=== PATIENT | female | born 1945 | race Caucasian/White ===

== ENCOUNTER 2018-10-23 08:20 | Inpatient (IN) ==
[2018-10-23] MEDS ORDERED: ceFAZolin SODIUM 1 GM VIAL IV PRN (09:00)
[2018-10-23] MEDS ORDERED: TRANEXAMIC ACID 1,000 MG in NORMAL SALINE 100 ML IV PRN (09:00)
[2018-10-23] MEDS ORDERED: MORPHINE SULFATE 15 MG TABLET.SA PO PRN (09:00)
--- NOTE | 2018-10-23 10:16 | ANES ---
Anesthesia Pre Procedure Eval Vitals/Labs: Last Vital Signs Temp 36.5 C 10/23/18 08:52 Pulse 75 10/23/18 08:52 Resp 16 10/23/18 08:52 BP 148/57 10/23/18 08:52 Pulse Ox 95 10/23/18 08:52 HOME MEDICATIONS Albuterol Sulfate [Albuterol Sulfate Hfa] 18 gm INHALATION PRN PRN 10/23/18 [Last Taken Unknown] Budesonide/Formoterol Fumarate [Symbicort 160-4.5 Mcg Inhaler] 2 inhaler INHALATION PRN PRN 10/23/18 [Last Taken Unknown] Fexofenadine/Pseudoephedrine [Estrella-D 12 Hour Tablet] 1 ea PO PRN PRN 10/23/18 [Last Taken 10/23/18 06:15] Levothyroxine Sodium [Synthroid] 75 mcg PO DAILY 10/23/18 [Last Taken 10/23/18 06:15] Lisinopril/Hydrochlorothiazide [Lisinopril-Hctz 10-12.5 mg Tab] 1 ea PO DAILY 10/23/18 [Last Taken 10/23/18 06:15] Allergies/Adverse Reactions: Allergies Allergy/AdvReac Type Severity Reaction Status Date / Time peanut Allergy Severe Shortness Verified 10/23/18 09:01 of Breath montelukast [From Singulair] Allergy hives Verified 10/23/18 09:01 alendronate sodium AdvReac Unknown Other Verified 10/23/18 09:01 [From Fosamax] clopidogrel [From Plavix] AdvReac epistaxis Verified 09/05/18 09:01 grass pollen AdvReac trouble Verified 09/05/18 09:01 breathing house dust mite AdvReac touble Verified 09/05/18 09:01 breathing mold AdvReac trouble Verified 09/05/18 09:01 breathing pollen extracts AdvReac trouble Verified 09/05/18 09:01 breathing tetnus Allergy Unknown Uncoded 10/23/18 09:01 - Planned Procedure Planned Procedure: R total reverse shoulder Medication List Reviewed:: Yes Allergies Verified: Yes Medical History (Updated 10/03/18 @ 16:21 by Eliecer Randhawa MD) Osteoarthritis of shoulder (Chronic) Precancerous changes of the cervix Varicose veins of both lower extremities Arthritis Onset Date: ~11/10/12 ankle and foot Asthma Crohns disease Environmental allergies Fibromyalgia Irritable bowel Osteopenia Osteoporosis Rheumatoid arthritis Thyroid disease History of sinus problem Stroke Transient ischemic attack (TIA) Surgical History (Updated 09/21/18 @ 14:30 by Eliecer Randhawa MD) History of breast surgery Onset Date: ~1991 reconstructive breast surgery History of colonoscopy Onset Date: ~05/2004 Bagan- colitis History of hysterectomy Onset Date: ~1980 still has 1 ovary History of mastectomy Onset Date: ~1988 right breast Retinal detachment Onset Date: ~2000 Family History (Updated 08/03/18 @ 08:02 by Lety Webster LPN) Father Asthma Sister Cancer colon Son Jackman sarcoma Sister History of breast cancer Mother Myocardial infarction Schizophrenia - Family Anesthesia History Family History:: no untoward family reactions to anesthesia - Airway/Neck/Teeth Denture Type: Full upper Neck Exam: full range of motion Mallampatti Score: 1 Thyromental (T-M) distance: > 6 cm - Respiratory Respiratory History: COPD Respiratory Physical: lungs clear Sleep Apnea currently treated: No Sleep Apnea by current assessment: No - Cardiovascular Cardiac History: TIA Heart Sounds: S1 & S2, Regular, Murmur - Anesthesia Assessment and Plan ASA Class: PS, III Anesthesia Type Plan: General LMA - interscalene nerve block for postop analgesia Planned difficult intubation/equipment available: No
[2018-10-23] MEDS: RINGER'S SOLUTION,LACTATED 1,000 ML IV PRN ×2 (10:34→11:30)
[2018-10-23] MEDS ORDERED: ACETAMINOPHEN 500 MG TABLET PO PRN (13:18)
[2018-10-23] MEDS ORDERED: MORPHINE SULFATE 2 MG/ML DISP.SYRIN IV PRN (13:18)
[2018-10-23] MEDS ORDERED: diphenhydrAMINE HCL 50 MG/ML VIAL IV PRN (13:18)
[2018-10-23] MEDS ORDERED: ZOLPIDEM TARTRATE 5 MG TABLET PO PRN (13:18)
[2018-10-23] MEDS ORDERED: MAG HYDROX/ALUMINUM HYD/SIMETH 30 ML UDC PO PRN (13:18)
[2018-10-23] MEDS ORDERED: ONDANSETRON HCL/PF 2 MG/ML VIAL IV PRN (13:18)
[2018-10-23] MEDS ORDERED: MAGNESIUM HYDROXIDE 30 ML UDC PO PRN (13:18)
[2018-10-23] MEDS ORDERED: ALBUTEROL SULFATE 200 PUFF INHALER IH PRN (13:20)
[2018-10-23] MEDS ORDERED: FEXOFENADINE PO PRN (13:20)
[2018-10-23] MEDS ORDERED: [UNRECOGNIZED DRUG - OTHER] PO PRN (13:20)
[2018-10-23] MEDS ORDERED: PSEUDOEPHEDRINE PO PRN (13:20)
--- NOTE | 2018-10-23 13:27 | OR ---
Operative Report - Dictated Report Narrative: DATE OF PROCEDURE: 10/23/2018 PHYSICIAN: Eliecer Randhawa MD LABORER SAWMILL: Roscoe Spencer PA-C (provided and essential set of skilled, educated hands that assisted with transfer, positioning, prepping, draping, manipulation, retraction, placement of implants, irrigation, closure wounds, and application of dressings all which cannot be performed by the available surgical crew) PREOPERATIVE DIAGNOSIS: Right rotator cuff deficient shoulder arthrosis. POSTOPERATIVE DIAGNOSIS: Right rotator cuff deficient shoulder arthrosis. OPERATIONS AND PROCEDURES: Right reverse total shoulder arthroplasty. ANESTHESIA: General plus regional. COMPLICATIONS: None. DRAINS: None. SPECIMENS: Bone. ESTIMATED BLOOD LOSS: 150 mL. RETAINED IMPLANTS: 1. DePuy Delta Xtend cementless metaglene. 2. Delta Xtend glenosphere, 38 mm standard. 3. Delta Xtend size 8 modular humeral IQBAL-coated cementless stem. 4. Size 1 right modular eccentric epiphysis IQBAL-coated cementless. 5. Delta Xtend standard polyethylene size 38 plus 6 mm. 6. Metaglene locking screws, 36 mm and 60 mm in length. 7. Nonlocking metaglene screws, 18 mm x 2 . INDICATIONS FOR PROCEDURE: Mrs. Hilliard is a 72-year-old female with significant past history of rotator cuff tears and arthrosis. She had treated these conservatively and had an irreparable rotator cuff with some progression of arthrosis of the shoulder and difficulty with activities of daily living in pain. She was seen in clinic and had failed conservative measures. She wished to proceed with surgical treatment. The risks, benefits, and alternatives were discussed in clinic, including the risk of , blood clots, bleeding, infection, nerve/tendon/blood vessel injury, malposition of components, failure of components, wear or limited range of motion, stiffness, and need for additional procedures, and she wished to proceed. Consent was obtained here in the clinic. DESCRIPTION OF PROCEDURE: After marking the correct extremity in the preoperative holding area, the patient was taken to the operating room. A timeout was performed. IV antibiotics consisting of Ancef were administered prior to procedure. The regional followed by general anesthetic was induced by the nurse recording studio setup worker at my request. She was then transitioned to beach chair position with all bony prominences well padded. The head in neutral, legs with SCDs and supported,and the nonoperative arm supported. The surgical arm was prescrubbed with alcohol then prepped and draped in the standard sterile fashion and the skin was covered with ioban. A deltopectoral incision was made and blunt dissection was carried down through the skin. The cephalic vein was identified, protected, and retracted. We then went through the deltopectoral interval, exposing the proximal humerus. It was noted that there was no rotator cuff, supraspinatus and infraspinatus tendon, or teres minor tendon. The subscapularis was intact as well as the biceps. A tag suture was placed in subscapularis tendon as well as the anterior capsule, and this was elevated off the anterior humerus passing along the bicipital groove and into the rotator cuff interval, exposing the proximal humerus. This was then freed off the proximal humerus. A biceps tenotomy was performed and the shoulder was dislocated. The humeral head was noted to show signs of arthrosis. Next, an entry drill was placed down the humerus centered on the longitudinal axis entering off just onto the articular surface on the humeral head. Next were serial reamers up to the size 8 were utilized, which gave good overall cortical contact. Next, a proximal humeral head cut was performed. We made the cut at approximately 20 degrees of retroversion. This appeared to resect an appropriate amount of humeral head. This was then pinned into place and an oscillating saw was utilized to cut this humeral head, protecting the surrounding soft tissues. We then placed a cap over the proximal humerus and turned our attention to the glenoid. The soft tissues were then elevated off the humeral neck as well as circumferentially around the glenoid. The glenoid was exposed. The remaining biceps tendon and labrum were resected. Using tractors, the glenoid was exposed and a guidewire was placed just posterior and inferior to the center of the glenoid. This was made so that it directed slightly superiorly but otherwise perpendicular to the glenoid on the axillary plane. Protecting the surrounding soft tissues, a reamer was utilized in order to remove the remaining cartilage. A shorthand teacher was utilized in order to resect the superior cartilage, and this resulted in a good overall appearance of the glenoid. The center drill lug hole was drilled and had good circumferential bone. The metaglene was then impacted into place and oriented for placement of screws along the mid plane in the kong perior and inferior quadrants of the glenoid as well as anterior to posterior screws. These were drilled and had appropriate overall length of screws on the superior and inferior metaglene screws. Good purchase was obtained with a 30 mm screw superiorly and 36 mm screw inferiorly. The anterior and posterior screws were drilled and 18 mm anterior and 18mm posterior nonlocking screws were placed. We then locked the superior and inferior screws into place. This gave good overall compression down to the glenoid with flat overall appearance and an appropriate alignment. We returned our attention to the proximal humerus. The proximal humeral reaming guide was placed for an eccentric reamer. This was utilized in order to prepare the proximal humerus. The trial stem was assembled on the back table and impacted into place. After placing the trial stem, we then returned to the metaglene. The glenosphere was then secured to the metaglene, impacted, and tightened ensuring that this was seated completely. We then returned to the humeral component and placed the trials of polyethylene inserts and found that the 6mm gave good overall longitudinal traction with no gapping. The shoulder was able to reach 140 degrees of forward flexion and 120 degrees of abduction, external rotation was to 80 degrees and with fulcrum and armpit were unable to hinge the joint out of place, and there was no essentially no gapping of the polyethylene off the humeral head nor any signs of impingement on the glenoid neck. We felt that these were the appropriately placed and sized implants. We then dislocated the shoulder, removed the trial implants, thoroughly irrigated the humerus, impacted the final implants into place in the prior determined retroversion after placing bone graft. The trial polyethylene was utilized again and was noted that the actual stem and the trial stem were equal in tension, and thus the final polyethylene was impacted into place. The shoulder was reduced, again noted to be stable, was then thoroughly irrigated. The subscapularis was secured to the surrounding soft tissues using a #2 Ethibond suture through drill holes with the suture surrounding the implant. The deltopectoral interval was closed with #0 Vicryl. The deep tissues were then closed with #0 Vicryl, subcutaneous with 3-0 Vicryl, and the skin with bala. Xeroform, 4 x 4, ABD, soft roll, and Tubigrip was applied. The patient was placed in a shoulder sling, awoken, and transferred to postanesthesia care in stable condition. All sponge, needle, and instrument counts were correct prior to closing the wounds. We will obtain postoperative films and be admitted to the floor for postoperative pain control, IV antibiotics, and starting of physical therapy. I anticipate a one to two night hospital stay.
--- NOTE | 2018-10-23 13:49 | ANES ---
Post Anesthesia Discharge - Transfer of Care Transfer of Care handoff given to nurse: Yes - Discharge from PACU Discharge from PACU when meets criteria: Yes
--- NOTE | 2018-10-23 13:54 | ANES ---
Anesthesia Procedure Note Procedure Note: ANESTHESIA PROCEDURE NOTE Date of procedure: 10/23/2018. Time of procedure: 1105. Performed by: Alli Estrada CRNA Multicultural Manager: Shannen Tang RN . Preprocedure diagnosis: Right shoulder DJD. Desire for postoperative analgesia. Post procedure diagnosis: Same. Procedure: Ultrasound-guided right interscalene nerve block Indications: Postoperative analgesia. Findings: Patient brought to operating room #2 and placed in a semi-cueto's position. Patient was sedated. The right side of patient's neck was prepped with ChloraPrep. Ultrasound utilized to identify the right brachial plexus in the interscalene groove. A 22-gauge 2 inch regional block needle was advanced under ultrasound guidance until tip of needle was placed just anterior to brachial plexus in the interscalene groove. 20 mL of 0.5% Marcaine with epinephrine 1-200,000 was injected with adequate spread of local anesthesia noted. Regional block needle was then repositioned until tip of needle was placed just posterior to brachial plexus. 15 mL of 0.5% Marcaine with epinephrine 1 200,000 was injected with adequate spread of local anesthesia again noted. Regional block needle was removed intact. EBL: Minimal. Fluids: N/A. Specimen: N/A. Post procedure condition: The patient tolerated the procedure well. No c omplications were noted. Thank you for this consultation Alli Estrada CRNA
--- NOTE | 2018-10-23 14:17 | ANES ---
Post Anesthesia Assessment - Vital Signs Vitals: Last Vital Signs Temp 36.8 C 10/23/18 14:05 Pulse 91 10/23/18 14:05 Resp 16 10/23/18 14:05 BP 143/61 10/23/18 14:05 Pulse Ox 94 10/23/18 14:05 Airway Patency: Normal - Mental Status Level Of Consciousness: Awake - Pain Level Pain Score: 0 - N/V Assessment Nausea/Vomiting Presence: None Dehydration:: No
[2018-10-23] MEDS: DEXTROSE 5%-LACTATED RINGERS 1,000 ML IV PRN ×2 (14:35→23:29)
[2018-10-23] MEDS: KETOROLAC TROMETHAMINE 15 MG/ML VIAL IV SCH ×2 (14:35→20:10)
[2018-10-23] MEDS: ceFAZolin SODIUM 1 GM in DEXTROSE 5 % IN WATER 100 ML IV SCH ×4 (14:36→20:49)
[2018-10-23] MEDS: oxyCODONE HCL/ACETAMINOPHEN 1 TAB TABLET PO PRN (20:48)
[2018-10-23] MEDS ORDERED: SENNOSIDES/DOCUSATE SODIUM 1 TAB TABLET PO SCH (21:00)
[2018-10-23] MEDS ORDERED: ALBUTEROL SULFATE 2.5 MG/0.5 ML VIAL.NEB IH PRN (22:18)
[2018-10-24] MEDS: KETOROLAC TROMETHAMINE 15 MG/ML VIAL IV SCH ×2 (02:05→09:02)
[2018-10-24] MEDS: oxyCODONE HCL/ACETAMINOPHEN 1 TAB TABLET PO PRN ×3 (02:14→13:02)
[2018-10-24] MEDS: ceFAZolin SODIUM 1 GM in DEXTROSE 5 % IN WATER 100 ML IV SCH ×2 (03:22)
[2018-10-24] MEDS ORDERED: FLUTICASONE PROPION/SALMETEROL 14 PUFF DISK.W.DEV IH PRN ×2 (05:36→07:00)
[2018-10-24 05:52] LABS: Anion Gap 11.1 mmol/L (6.8-13.8); Calcium * 8.2 mg/dL (7.9-10.9); Carbon Dioxide 28.4 mmol/L (24-32.6); Estimated Creat Clear 35.9; Potassium 3.5 mmol/L (3.4-4.6)
[2018-10-24 05:55] LABS: Hematocrit 28.6 % (37.0-47.0); Hemoglobin 9.6 gm/dL (12.5-16.0); Mean Cell Volume 91.4 fl (78-100); Mean Corpuscular Hemoglobin 30.7 pg (27-31); Mean Corpuscular Hgb Conc 33.6 g/dl (32-36); Mean Platelet Volume 9.9 fl (8-12.5); Platelet Count 138 K/mm3 (150-450); Red Blood Count 3.13 M/mm3 (4.2-5.4); Red Cell Distribution Width 12.9 % (11.5-14.0); White Blood Count 7.3 K/mm3 (4.0-10.5)
[2018-10-24 06:06] LABS: BUN/Creatinine Ratio 17.8 (9.0-21.6)
[2018-10-24] MEDS ORDERED: LEVOTHYROXINE SODIUM 75 MCG TABLET PO SCH (07:00)
[2018-10-24] MEDS ORDERED: HYDROCHLOROTHIAZIDE 12.5 MG CAPSULE PO SCH (09:00)
[2018-10-24] MEDS ORDERED: NON-FORMULARY 1 DOSE DOSE (Lisinopril/Hydrochlorothiazide [Lisinopril-Hctz 10-12.5 Mg Tab] PO SCH (09:00)
[2018-10-24] MEDS ORDERED: LISINOPRIL 10 MG TABLET PO SCH (09:00)
[2018-10-24] MEDS ORDERED: ALLEGRA D PO SCH (09:00)
--- NOTE | 2018-10-24 12:13 | DS ---
(1) Status post reverse arthroplasty of shoulder Problem: Acute (2) Acute blood loss anemia Problem: Acute (3) Hypertension Problem: Chronic (4) Osteoarthritis of shoulder Problem: Chronic Qualifiers: Description of Stay: Mrs. Hilliard was admitted postoperatively after undergoing reverse right total shoulder arthroplasty. She was admitted for IV antibiotics, pain control and physical therapy. Patient did well on converting to oral pain medications. She did report some mild lightheadedness associated with pain medications but has not had any nausea or vomiting. She did finish her course of IV antibiotics postoperatively. Postop day 1 labs showed hemoglobin of 9.6. A Brad-Nobles drain was placed at the time of surgery patient had 50 mL's of drainage overnight. Drain was pulled prior to discharge. Vital signs stable. Patient did well ambulating with physical therapy. Patient felt comfortable for discharge. She was discharged with instructions to keep the dressings clean and dry. Compressive Tubigrip to arm and in immobilizer except for an therapy, home exercises and bathing. Physical therapy prescription written for passive and passive assisted range of motion. She is to resume her home medications. She was discharged with MS Contin as well as Percocet for pain. She has follow-up scheduled our office for staple removal. She is instructed to call with any concerns in the meantime. Discharged in stable condition with her . Procedures Performed: see notes below List Procedures: Reverse right total shoulder arthroplasty Results and Findings: Lab Pending Results 10/24/18 05:38: WBC 7.3, RBC 3.13 L, Hgb 9.6 L, Hct 28.6 L, MCV 91.4, MCH 30.7, MCHC 33.6, RDW 12.9, Plt Count 138 L, MPV 9.9 10/24/18 05:38: Sodium 136, Plasma Sodium 136, Potassium 3.5, Chloride 100, Carbon Dioxide 28.4, Anion Gap 11.1, BUN 18, Creatinine 1.01, Est GFR (Non-Af Amer) 57 L, BUN/Creatinine Ratio 17.8, Random Glucose 126 H, Calcium 8.2 Discharge Location: Home Disposition: Home self-care Condition: Good Discharge Activity: Other - In immobilizer Discharge Diet: Low salt Additional Patient Instructions (free text): Physical Therapy scheduled at [facility] on October 26 at 12:45 am. Follow-up in Orthopedic office with Dr. Randhawa on November 07 at 9:00am. Prescriptions (Any new or edited meds): Morphine Sulfate [Ms Contin] 15 mg PO PREOP PRN #14 tablet.sa PRN Reason: preop pain oxyCODONE HCL/ACETAMINOPHEN [Percocet 5 MG/325 MG] 2 tab PO Q4H PRN #60 tab PRN Reason: Moderate Pain (Pain Scale 4-6) Sennosides/Docusate Sodium [Senokot-S] 2 tab PO HS #30 tab Complete Home Medications List: Complete Home Medication List: Albuterol Sulfate [Albuterol Sulfate Hfa] 2 puff INHALATION BID PRN 10/23/18 Budesonide/Formoterol Fumarate [Symbicort 160-4.5 Mcg Inhaler] 2 inhaler INHALATION DAILY PRN 10/23/18 Fexofenadine/Pseudoephedrine [Estrella-D 12 Hour Tablet] 1 ea PO DAILY 10/23/18 Levothyroxine Sodium [Synthroid] 75 mcg PO DAILY 10/23/18 Lisinopril/Hydrochlorothiazide [Lisinopril-Hctz 10-12.5 mg Tab] 1 ea PO DAILY 10/23/18 Aspirin [Aspirin Enteric Coated] 325 mg PO BID #0 tablet. 10/24/18 Morphine Sulfate [Ms Contin] 15 mg PO PREOP PRN #14 tablet.sa 10/24/18 Sennosides/Docusate Sodium [Senokot-S] 2 tab PO HS #30 tab 10/24/18 oxyCODONE HCL/ACETAMINOPHEN [Percocet 5 MG/325 MG] 2 tab PO Q4H PRN #60 tab 10/24/18 Amb Orders for Discharge: PT Evaluation and Treatment* Facility: [facility], Location: Rehabilitation Services
[2018-10-24 13:52] VITALS: BP 138/49
[2018-10-25] MEDS ORDERED: ASPIRIN 325 MG TABLET.DR PO SCH (21:00)
== END 2018-10-24 13:30 | disposition home or self-care (01) | DRG 483 ==
LOC: MS 08:20
PROVIDERS: ADMIT Orthopaedic Surgery; ATTEND Orthopaedic Surgery
CPT/HCPCS: 36415; 73030; 80048; 85027; 97116; 97140; 97161; 97165; J2405